=== PATIENT | female | born 1980 | race Caucasian/White ===

== ENCOUNTER → 2016-08-06 | Emergency (ER) | payer BC, OTHER ==
[~2016-08-06] MED LIST: KETOROLAC TROMETHAMINE 30 MG/1 ML VIAL IVPUSH ONE; KETOROLAC TROMETHAMINE 30 MG/1 ML VIAL ONE; LIDOCAINE 5% TOPICAL PATCH TP ONE; OXYCODONE/APAP 5/325MG COMBO TABLET ONE; OXYCODONE/APAP 5/325MG COMBO TABLET PO ONE; diazePAM 5 MG TABLET ONE; diazePAM 5 MG TABLET PO ONE; morphine CARPU-JECT 4 MG/1 ML DISP.SYRIN IVPUSH ONE; morphine CARPU-JECT 4 MG/1 ML DISP.SYRIN ONE
[2016-08-06 22:25] VITALS: TEMP 98.2; BMI 29.0
--- NOTE | 2016-08-06 23:07 | PDOC ---
History of Present Illness <Joanne Sparks - Last Filed: 08/07/16 05:36> - General History Source: Patient Exam Limitations: No Limitations - History of Present Illness Initial Comments: 08/06/16 23:00 Patient is a 35 year old female with h/o depression, kidney stone, RA, fibromyalgia, lap band, cholecystectomy, breast reduction, urostents for kidney stone, c/o lower back pain x 4 days. Patient states was tolerating pain but today bend out to pick son up and heard a pop in the back, then had 10/10 pain. The pain is continuous, radiates to the vagina and down the left buttock, and with coughing radiates up the upper back. No bowel or bladder incontinence, but when she tries to have a BM the pain get more intense. PMD: Dr. Posey Ortho: Dr. Green ALL: PCN GENERAL/CONSTITUTIONAL: [No fever or chills. No weakness. No weight change.] HEAD, EYES, EARS, NOSE AND THROAT: [No change in vision. No ear pain or discharge. No sore throat.] CARDIOVASCULAR: [No chest pain or shortness of breath.] RESPIRATORY: [No cough, wheezing, or hemoptysis.] GASTROINTESTINAL: [No nausea, vomiting, diarrhea or constipation. No rectal bleeding.] GENITOURINARY: [No dysuria, frequency, or change in urination.] MUSCULOSKELETAL: [No joint or muscle swelling or pain. No neck , (+) back pain. ] SKIN AND BREASTS: [No rash or easy bruising.] NEUROLOGIC: [No headache, vertigo, loss of consciousness, or loss of sensation.] PSYCHIATRIC: (+) depression or anxiety.] ENDOCRINE: [No increased thirst. No abnormal weight change.] HEMATOLOGIC/LYMPHATIC: [No anemia, easy bleeding, or history of blood clots.] ALLERGIC/IMMUNOLOGIC: [No hives or skin allergy. No latex allergy.] GENERAL: [The patient is awake, alert, and fully oriented, in moderate painful distress.] HEAD: [Normal with no signs of trauma.] EYES: [Pupils equal, round and reactive to light, extraocular movements intact, sclera anicteric, conjunctiva clear.] ENT: [Ears normal, nares patent, oropharynx clear without exudates. Moist mucous membranes.] NECK: [Normal range of motion, supple without lymphadenopathy, JVD, or masses.] LUNGS: [Breath sounds equal, clear to auscultation bilaterally. No wheezes, and no crackles.] HEART: [Regular rate and rhythm, normal S1 and S2 without murmur, rub.] ABDOMEN: [Soft, nontender, normoactive bowel sounds. No guarding, no rebound. No masses.] BACK: (+) tenderness to the paraspinal muscle, tenderness to the left buttock EXTREMITIES: [Normal range of motion, no edema. No clubbing or cyanosis. No cords, erythema, or tenderness.] NEUROLOGICAL: [Cranial nerves II through XII grossly intact. Normal speech, anthalgic gait, straight leg raise to 20 degrees] PSYCH: [Normal mood, normal affect.] SKIN: [Warm, Dry, normal turgor, no rashes or lesions noted.] <Geoff Dominguez - Last Filed: 08/07/16 06:21> - General Chief Complaint: Back Pain Stated Complaint: BACK PAIN Past History <Joanne Sparks - Last Filed: 08/07/16 05:36> - Past Medical History Anemia: No Asthma: No Cancer: No Cardiac Disorders: No CVA: No COPD: Yes (H/O BRONCHITIS) CHF: No Dementia: No Diabetes: No GI Disorders: Yes (GERD,PYLORIC GASTRITIS) Disorders: No HTN: No Hypercholesterolemia: No Liver Disease: No Psychiatric Problems: Yes (DEPRESSION) Seizures: No Thyroid Disease: No - Surgical History Abdominal Surgery: Yes (LAPAROSCOPIC BARIATRIC BANDING) Cardiac Surgery: No Cholecystectomy: Yes Lung Surgery: No Neurologic Surgery: No Orthopedic Surgery: No - Immunization History Immunization Up to Date: Yes (>5 <10) - Psycho/Social/Smoking Cessation Hx Anxiety: No Suicidal Ideation: No Smoking History: Current some day smoker Have you smoked in the past 12 months: Yes Number of Cigarettes Smoked Daily: 5 Information on smoking cessation initiated: No 'Breaking Loose' booklet given: 05/26/14 Hx Alcohol Use: No Drug/Substance Use Hx: No Substance Use Type: None Hx Substance Use Treatment: No <Geoff Dominguez - Last Filed: 08/07/16 06:21> - Past Medical History Allergies/Adverse Reactions: Allergies Allergy/AdvReac Type Severity Reaction Status Date / Time Penicillins Allergy Mild Rash Verified 08/06/16 22:22 Home Medications: Ambulatory Orders Duloxetine HCl [Cymbalta -] 60 mg PO DAILY 05/26/14 Lorazepam [Ativan] 1 mg PO HS PRN 05/26/14 Ranitidine HCl [Zantac] 300 mg PO DAILY 05/20/15 Ibuprofen 600 mg PO QID PRN #20 tablet 01/23/16 Bupropion HCl [Wellbutrin -] 150 mg PO DAILY 08/07/16 Diazepam [Valium] 5 mg PO Q6H #10 tablet MDD 4I need M 08/07/16 Oxycodone HCl/Acetaminophen [Percocet 5/325 -] 1 tab PO Q4H #20 tablet MDD 6 *Physical Exam - Vital Signs Last Vital Signs Temp Pulse Resp BP Pulse Ox 98.2 F 84 18 106/88 100 08/06/16 22:22 08/06/16 22:22 08/06/16 22:22 08/06/16 22:22 08/06/16 22:22 <Joanne Sparks - Last Filed: 08/07/16 05:36> - Vital Signs Last Vital Signs Temp Pulse Resp BP Pulse Ox 98.2 F 84 18 106/88 100 08/06/16 22:22 08/06/16 22:22 08/06/16 22:22 08/06/16 22:22 08/06/16 22:22 <Geoff Dominguez - Last Filed: 08/07/16 06:21> ED Treatment Course - ADDITIONAL ORDERS Additional order review: Laboratory Results 08/06/16 08/06/16 23:25 23:25 Urine Color Yellow Urine Appearance Slcloudy Urine pH 7.0 Ur Specific [place] 1.025 Urine Protein Negative Urine Glucose (UA) Negative Urine Ketones Trace H Urine Blood 1+ H Urine Nitrite Negative Urine Bilirubin Negative Urine Urobilinogen 2.0 e.u/dl H Ur Leukocyte Esterase Negative Urine RBC 6 Urine WBC 3 Ur Epithelial Cells Few Urine Bacteria Few Urine Mucus Rare Urine HCG, Qual Negative - RADIOLOGY Radiology Studies Ordered: 08/07/16 05:36 THIS IS A PRELIMINARY REPORT FROM [facility] EXAM: CT lumbar spine without contrast FINDINGS: No fracture or subluxation. There is a small herniated disc osteophyte complex at the T12/L1 level which mildly narrows the central canal. The L1 to, L2-3 and L3-4 levels are normal. L4-5 disc demonstrates a small to moderate-sized left central and left lower disc herniation which mildly narrow the left lateral recess and moderately narrows the left neural foramen. L5/S1 disc and small central protrusion or herniation without significant mass effect. IMPRESSION: Small central herniated disc aspect at the T12/L1 level which mildly narrows the central canal. Small to moderate-sized L4-5 left central/ left lateral disc herniation which mildly narrows the left lateral recess and moderately narrows the left neural foramen. Small central L5/S1 disc herniation without significant mass effect. THIS DOCUMENT HAS BEEN ELECTRONICALLY SIGNED Justin Javier MD - Medications Given in the ED: ED Medications Discontinued Medications Generic Name Dose Route Start Last Admin Trade Name Freq PRN Reason Stop Dose Admin Diazepam 5 mg 08/06/16 22:58 08/06/16 23:05 Valium - PO 08/06/16 22:59 5 mg ONCE ONE Administration Ketorolac Tromethamine 30 mg 08/06/16 22:58 08/06/16 23:12 Toradol Injection - IVPUSH 08/06/16 22:59 30 mg ONCE ONE Administration Morphine Sulfate 4 mg 08/07/16 00:19 08/07/16 00:27 Morphine Injection - IVPUSH 08/07/16 00:20 4 mg ONCE ONE Administration Morphine Sulfate 4 mg 08/07/16 03:39 08/07/16 04:13 Morphine Injection - IVPUSH 08/07/16 03:40 4 mg ONCE ONE Administration Oxycodone/Acetaminophen 1 combo 08/07/16 01:24 08/07/16 01:30 Percocet 5/325 - PO 08/07/16 01:25 1 combo ONCE ONE Administration <Joanne Sparks - Last Filed: 08/07/16 05:36> Medical Decision Making - Medical Decision Making 08/06/16 23:07 Patient is a 35 year old female with h/o depression, kidney stone, RA, fibromyalgia, lap band, cholecystectomy, breast reduction, urostents for kidney stone, c/o lower back pain x 4 days with radiates down the right leg consistent with lumbar radiculopathy. valium 5mg po and toradol 30mg IV 08/07/16 01:04 still c/o pain given Morphine 4mg IV states pain is 7/10, will given percocet 1 tab po 08/07/16 03:40 Still in pain now worsening will given Morphine 4mg IV and send for CT lumbar spine 08/07/16 06:11 ct scan reviewed with the patient still has pain but will give percocet 1 tab and Lidoderm patch. I discussed the physical exam findings, ancillary test results and final diagnoses with the patient. I answered all of the patient's questions. The patient was satisfied with the care received and felt comfortable with the discharge plan and treatment plan. The Patient agrees to follow up with the primary care physician within 24-72 hours. <Geoff Dominguez - Last Filed: 08/07/16 06:21> *DC/Admit/Observation/Transfer <Joanne Sparks - Last Filed: 08/07/16 05:36> <Geoff Dominguez - Last Filed: 08/07/16 06:21> Diagnosis at time of Disposition: Lumbar radicular pain - Discharge Dispostion Disposition: HOME Condition at time of disposition: Stable - Prescriptions Prescriptions: Oxycodone HCl/Acetaminophen [Percocet 5/325 -] 1 tab PO Q4H #20 tablet MDD 6 Diazepam [Valium] 5 mg PO Q6H #10 tablet MDD 4I need M - Referrals Referrals: Pollo Posey MD [Primary Care Provider] - - Patient Instructions Additional Instructions: Your Discharge Instructions: You must call primary care physician within 24 hours to arrange follow-up. Return to the Emergency Department with any new, persistent or worsening symptoms, for fever, chills, SOB, dizziness or any other concerning changes that may occur. you need to follow with spine
[2016-08-06 23:36] LABS: URINE APPEARANCE SLCLOUDY; URINE BILIRUBIN NEGATIVE (NEGATIVE); URINE COLOR YELLOW; URINE GLUCOSE (UA) NEGATIVE (NEGATIVE); URINE KETONE TRACE (NEGATIVE); URINE LEUK ESTERASE NEGATIVE (NEGATIVE); URINE NITRITE NEGATIVE (NEGATIVE); URINE PROTEIN NEGATIVE (NEGATIVE); URINE UROBILINOGEN 2.0 E.U/dl E.U./dl (0.2-1.0)
[2016-08-06 23:38] LABS: URINE BLOOD 1+ (NEGATIVE)
[2016-08-06 23:42] LABS: URINE BACTERIA FEW /hpf (NONE SEEN); URINE MUCUS RARE; URINE RBC 6 /hpf (0-3); URINE WBC 3 /hpf (3-5)
[2016-08-07 06:35] VITALS: BP 104/60; PULSE 67
== END | disposition home or self-care (01) ==
LOC: JER 22:14
PROC: 3E0333Z Introduction of Anti-inflammatory into Peripheral Vein, Percutaneous Approach (ICD-10-PCS; principal; 2016-08-06)
PROC: 3E033NZ Introduction of Analgesics, Hypnotics, Sedatives into Peripheral Vein, Percutaneous Approach (ICD-10-PCS; 2016-08-06)
DX: M54.16 Radiculopathy, lumbar region (principal)
CPT/HCPCS: 72131-TC; 81003; 81015; 84703; 99282-25

== ENCOUNTER 2016-09-25 09:37 | Emergency (ER) | payer BC, OTHER ==
[2016-09-25 09:46] VITALS: BMI 29.0
--- NOTE | 2016-09-25 10:59 | PDOC ---
History of Present Illness - General Chief Complaint: Pain, Acute Stated Complaint: CHEST AND BACK PAIN Time Seen by Provider: 09/25/16 09:52 History Source: Patient Exam Limitations: No Limitations - History of Present Illness Initial Comments: 09/25/16 10:51 This patient is a 35-year-old female presenting to the ER with a complaint of cough Pt states she has had a cough for 2 weeks She was seen at an urgent care when her symptoms first began She was diagnosed with allergies and started on Flonase and albuterol Pt states that she has persistently had a cough Last night, she had such a severe coughing spell that she threw out her back When she laid down 20 minutes later, she noted that she had left chest pain PMH: PSH: Lap band, Breast reduction, cholecystectomy, polypectomy, 2, stents in kidneys Please see MAR ALL: Penicillin Social: denies alcohol, drug, cigarette use GENERAL/CONSTITUTIONAL: No: fever, chills, weakness, loss of appetite. HEAD, EYES, EARS, NOSE AND THROAT: No: change in vision, ear pain, discharge, sore throat, throat swelling. CARDIOVASCULAR: Yes: chest wall pain No: lightheadedness, palpitations, syncope RESPIRATORY: Yes: cough, shortness of breath No: wheezing, hemoptysis, stridor. GASTROINTESTINAL: No: nausea, vomiting, diarrhea, abdominal cramping, rectal bleeding, constipation. GENITOURINARY: No: dysuria, hematuria, frequency, urgency, flank pain. MUSCULOSKELETAL: No: back pain, neck pain, joint pain, muscle swelling or pain SKIN AND BREASTS: No: lesions, pallor, rash or easy bruising. NEUROLOGIC: No: headache, vertigo, paresthesias, weakness ENDOCRINE: No: unexplained weight gain or loss HEMATOLOGIC/LYMPHATIC: No: anemia, easy bleeding, swelling nodes. GENERAL: The patient is in no acute distress. HEAD: Normal with no signs of trauma. EYES: PERRLA, EOMI, sclera anicteric, conjunctiva clear. ENT: Ears normal, nares patent, oropharynx clear without exudates. Moist mucous membranes. NECK: Normal range of motion, supple without lymphadenopathy, JVD, or masses. LUNGS: Breath sounds equal, clear to auscultation bilaterally. No wheezes, and no crackles. HEART:Regular rate and rhythm, normal S1 and S2 without murmur, rub or gallop. ABDOMEN: Soft, nontender, normoactive bowel sounds. No guarding, no rebound. No masses palpable. EXTREMITIES: Normal range of motion, no edema. No clubbing or cyanosis. No erythema, or tenderness. NEUROLOGICAL: Cranial nerves II through XII grossly intact. Normal speech. No focal neurological deficits. MUSCULOSKELETAL: Back non-tender to palpation, no CVA tenderness SKIN: Warm, Dry, normal turgor, no rashes or lesions noted. Past History - Past Medical History Allergies/Adverse Reactions: Allergies Allergy/AdvReac Type Severity Reaction Status Date / Time Penicillins Allergy Mild Rash Verified 09/25/16 09:39 Home Medications: Ambulatory Orders Duloxetine HCl [Cymbalta -] 60 mg PO DAILY 05/26/14 Lorazepam [Ativan] 1 mg PO HS PRN 05/26/14 Ranitidine HCl [Zantac] 300 mg PO DAILY 05/20/15 Bupropion HCl [Wellbutrin -] 150 mg PO DAILY 08/07/16 Albuterol Sulfate Inhaler - [Ventolin Hfa Inhaler -] 1 - 2 inh PO PRN PRN Fluticasone Prop 0.05% Nasal [Flonase -] 1 - 2 spray NS DAILY 09/25/16 Levofloxacin [Levaquin] 750 mg PO DAILY #7 tab 09/25/16 Anemia: No Asthma: Yes (BRONCHITIS) Cancer: No Cardiac Disorders: No CVA: No COPD: Yes (H/O BRONCHITIS) CHF: No Dementia: No Diabetes: No GI Disorders: Yes (GERD,PYLORIC GASTRITIS) Disorders: No HTN: No Hypercholesterolemia: No Liver Disease: No Psychiatric Problems: Yes (DEPRESSION) Seizures: No Thyroid Disease: No - Surgical History Abdominal Surgery: Yes (LAPAROSCOPIC BARIATRIC BANDING) Cardiac Surgery: No Cholecystectomy: Yes Lung Surgery: No Neurologic Surgery: No Orthopedic Surgery: No - Immunization History Immunization Up to Date: Yes (>5 <10) - Psycho/Social/Smoking Cessation Hx Anxiety: No Suicidal Ideation: No Smoking History: Current every day smoker Have you smoked in the past 12 months: Yes Number of Cigarettes Smoked Daily: 4 Information on smoking cessation initiated: No 'Breaking Loose' booklet given: 05/26/14 Hx Alcohol Use: Yes (SOCIALLY) Drug/Substance Use Hx: No Substance Use Type: None Hx Substance Use Treatment: No *Physical Exam - Vital Signs Last Vital Signs Temp Pulse Resp BP Pulse Ox 98.4 F 80 18 118/77 99 09/25/16 09:38 09/25/16 09:38 09/25/16 09:38 09/25/16 09:38 09/25/16 09:38 Heart Score/ECG Review #1 ECG reviewed & interpreted by me at: 11:06 09/25/16 11:06 Twelve-lead EKG was performed and reviewed by me. Junctional rhythm rate of 67 bpm. [place] nml Intervals nml No ST elevations ED Treatment Course - LABORATORY CBC & Chemistry Diagram: 09/25/16 11:10 09/25/16 11:10 - ADDITIONAL ORDERS Additional order review: Laboratory Results 09/25/16 10:00 Urine HCG, Qual Negative - RADIOLOGY Radiology Studies Ordered: Category Date Time Status CHEST PA & LAT [RAD] Stat Radiology 09/25/16 10:01 Completed Medical Decision Making - Medical Decision Making 09/25/16 10:59 Will do chest x-ray. Will give Toradol for pain. 09/25/16 10:59 Chest x-ray read as airspace opacity seen in the left lower lung zone lateral to the left heart border. Will treat as pneumonia. Last patient follow up with her primary care physician within 2 or 3 days. Last patient to monitor for fevers or chills. 09/25/16 11:05 I had a long conversation with this patient regarding her symptoms. This is likely an early pneumonia. Patient is concerned about a clot in her lungs. We've had a long conversation about her limited risk factors, and her stable vital signs. She is still worried and is requesting that we rule out a clot. 09/25/16 16:59 09/25/16 17:00 Laboratory Tests 09/25/16 09/25/16 09/25/16 10:00 11:10 11:10 WBC 8.9 Hgb 11.8 Hct 34.2 Plt Count 206 D-Dimer 244 H BUN Creatinine Urine HCG, Qual Negative 09/25/16 11:10 WBC Hgb Hct Plt Count D-Dimer BUN 8 Creatinine 0.7 Urine HCG, Qual CTA chest: No evidence of pulmonary embolism. Patchy opacities at the right and left lung with atelectatic changes in the right middle lobe medially and consolidation and atelectasis in lingular second segment of the left upper lobe consistent with pneumonia Patient given copies of her CT. I reviewed all findings of the CT with this patient. Patient asked to follow-up with her primary care physician. Patient asked to take meds antibiotics as we discussed Pt asked to follow up with Dr Walters given her CT shows esophageal dilation and she likely needs an adjustment of her band Pt asked to follow up with Ortho re: CT findings of her spine *DC/Admit/Observation/Transfer Diagnosis at time of Disposition: Pneumonia Qualifiers: Pneumonia type: due to unspecified organism Laterality: bilateral Lung location : unspecified part of lung Qualified Code(s): J18.9 - Pneumonia, unspecified organism - Discharge Dispostion Disposition: HOME Condition at time of disposition: Stable Admit: No - Prescriptions Prescriptions: Levofloxacin [Levaquin] 750 mg PO DAILY #7 tab - Patient Instructions Printed Discharge Instructions: DI for Pneumonia -- Adult Additional Instructions: Thank you for coming to the ER Please review your CT results You must follow up with your primary care physician Please take antibiotics as prescribed Monitor yourself for fevers and chills Return to the ER for worsening symptoms, fevers, chills, cough, shortness of breath, no improvement on the antibiotics - Post Discharge Activity Work/School Note: Back to Work
[2016-09-25] MEDS ORDERED: KETOROLAC TROMETHAMINE 30 MG/1 ML VIAL IVPUSH ONE (11:05)
[2016-09-25] MEDS ORDERED: KETOROLAC TROMETHAMINE 30 MG/1 ML VIAL ONE (11:10)
[2016-09-25 11:35] LABS: MCH 28.6 pg (25.7-33.7); MCHC 34.5 g/dl (32.0-36.0); MEAN CELL VOLUME 82.7 fl (80-96); MEAN PLT VOLUME 9.8 fl (7.5-11.1); NEUTROPHILS 76.9 % (42.8-82.8); PLATELET COUNT 206 K/MM3 (134-434); RDW 14.1 % (11.6-15.6); WHITE BLOOD COUNT 8.9 K/mm3 (4.0-10.8)
[2016-09-25 11:40] LABS: BASOPHIL 0.6 % (0-2.0)
[2016-09-25 11:44] LABS: COCKROFT - GAULT 145.7665; CREATININE 0.7 mg/dl (0.6-1.3)
[2016-09-25 15:01] VITALS: TEMP 98.2
[2016-09-25 16:37] VITALS: BP 102/64; PULSE 62
--- NOTE | 2016-09-26 11:55 | EKG ---
Test Reason : Blood Pressure : / mmHG Vent. Rate : 067 BPM Atrial Rate : 067 BPM P-R Int : 120 ms QRS Dur : 090 ms QT Int : 414 ms P-R-T Axes : -01 020 031 degrees QTc Int : 437 ms NORMAL SINUS RHYTHM JUNCTIONAL ST DEPRESSION, PROBABLY NORMAL BORDERLINE ECG WHEN COMPARED WITH ECG OF 19-JUN-2005 10:44, NO SIGNIFICANT CHANGE WAS FOUND Confirmed by DESIRE HUNTLEY, GEORGNIA ([id number]) on 09/26/2016 11:54:58 AM Referred By: FLACO Confirmed By:GEORGINA PHIPPS MD
== END 2016-09-25 17:24 | disposition home or self-care (01) ==
LOC: FER 09:37
PROC: 3E0333Z Introduction of Anti-inflammatory into Peripheral Vein, Percutaneous Approach (ICD-10-PCS; principal; 2016-09-25)
DX: J18.9 Pneumonia, unspecified organism (principal); F32.9 Major depressive disorder, single episode, unspecified; F17.210 Nicotine dependence, cigarettes, uncomplicated
CPT/HCPCS: 36415; 71020-TC; 71275-TC; 80048; 84703; 85025; 85379; 87040; 93005; 99284-25

== ENCOUNTER 2016-11-06 13:35 | Emergency (ER) | payer BC, OTHER ==
[2016-11-06 13:52] VITALS: BP 115/77; PULSE 78; TEMP 97.9; BMI 28.1
--- NOTE | 2016-11-06 14:16 | PDOC ---
History of Present Illness - General Chief Complaint: Respiratory Stated Complaint: PERSISTENT COUGH Time Seen by Provider: 11/06/16 13:41 History Source: Patient Exam Limitations: No Limitations - History of Present Illness Initial Comments: 11/06/16 14:11 Patient is 35F with a history of lap band surgery and PNA (dx 09/30) here today complaining of cough. The symptoms started in August, but worsened the past two days. She was worked up in the ED, where a CXR and CTA showed an infiltrate. She was prescribed levofloxacin for 7 days, but frequently coughed up the pill an hour or two after taking it because of her lap band surgery. She endorses shortness of breath, dizziness, and pleuritic chest pain in the upper left part of her chest radiating to her shoulder. She says she smokes 3-4 cigarettes per day. She denies nausea, vomiting, fevers chills. She took albuterol without improvement. Past History - Past Medical History Allergies/Adverse Reactions: Allergies Allergy/AdvReac Type Severity Reaction Status Date / Time Penicillins Allergy Mild Rash Verified 09/25/16 09:39 Home Medications: Ambulatory Orders Duloxetine HCl [Cymbalta -] 60 mg PO DAILY 05/26/14 Lorazepam [Ativan] 1 mg PO HS PRN 05/26/14 Ranitidine HCl [Zantac] 300 mg PO DAILY 05/20/15 Bupropion HCl [Wellbutrin -] 150 mg PO DAILY 08/07/16 Albuterol Sulfate Inhaler - [Ventolin Hfa Inhaler -] 1 - 2 inh PO PRN PRN Fluticasone Prop 0.05% Nasal [Flonase -] 1 - 2 spray NS DAILY 09/25/16 Amox-Tr/K Cl [Augmentin 250 mg/5 ml Oral Suspension -] 500 mg PO TID #21 dose Anemia: No Asthma: Yes (BRONCHITIS) Cancer: No Cardiac Disorders: No CVA: No COPD: Yes (H/O BRONCHITIS) CHF: No Dementia: No Diabetes: No GI Disorders: Yes (GERD,PYLORIC GASTRITIS) Disorders: No HTN: No Hypercholesterolemia: No Liver Disease: No Psychiatric Problems: Yes (DEPRESSION) Seizures: No Thyroid Disease: No - Surgical History Abdominal Surgery: Yes (LAPAROSCOPIC BARIATRIC BANDING) Cardiac Surgery: No Cholecystectomy: Yes Lung Surgery: No Neurologic Surgery: No Orthopedic Surgery: No - Immunization History Immunization Up to Date: Yes (>5 <10) - Psycho/Social/Smoking Cessation Hx Anxiety: Yes Suicidal Ideation: No Smoking History: Current every day smoker Have you smoked in the past 12 months: Yes Number of Cigarettes Smoked Daily: 4 Information on smoking cessation initiated: Yes 'Breaking Loose' booklet given: 05/26/14 Hx Alcohol Use: No Drug/Substance Use Hx: No Substance Use Type: None Hx Substance Use Treatment: No Review of Systems - Review of Systems Constitutional: No: Chills, Diaphoresis, Fever HEENTM: No: Blurred Vision, Recent change in vision Respiratory: Yes: Cough, Shortness of Breath Cardiac (ROS): Yes: Chest Pain, Lightheadedness ABD/GI: Yes: Constipated (At baseline), Diarrhea. No: Nausea, Vomiting : No: Burning, Dysuria Neurological: Yes: Dizziness. No: Headache *Physical Exam - Vital Signs Last Vital Signs Temp Pulse Resp BP Pulse Ox 97.9 F 78 16 115/77 100 11/06/16 13:41 11/06/16 13:41 11/06/16 13:41 11/06/16 13:41 11/06/16 13:41 - Physical Exam Comments: 11/06/16 14:16 Gen: Coughing regularly, no acute distress, well nourished Neuro: Alert, oriented, no focal neuro deficits CV: Regular rate and rhythm, no murmurs rubs or gallops Lungs: Clear to auscultation bilaterally, coughing, normal work of breathing Abd: Soft, nontender, normal bowel sounds Ext: 2+ pulses bilaterally in lower extremities ED Treatment Course - LABORATORY CBC & Chemistry Diagram: 11/06/16 14:10 11/06/16 14:10 - RADIOLOGY Radiology Studies Ordered: Category Date Time Status CHEST PA & LAT [RAD] Stat Radiology 11/06/16 14:07 Ordered Medical Decision Making - Medical Decision Making 11/06/16 15:34 Patient is a 35F with a history of PNA (dx 09/30) and Lap Band surgery (~10 years ago) here today complaining of a chronic cough. Patient did not complete her antibiotic regimen. Vital signs stable and normal. Differential diagnosis includes, but is not limited to: PNA, empyema, bronchitis, and asthma exacerbation. Will order CXR, CMP, CBC, and UA to evaluate. Neelima Noel, [employer]POR[employer] TRA[employer] of Dr Walters, patient's lap band surgeon, called to discuss patients problem swallowing pills. She will contact Dr Walters to discuss loosening lap band. 11/06/16 17:55 Neelima Nole took of 1.6 mL from band. CXR shows evidence of chronic inflammation of the right lower lung diaz. Suggestive of chronic aspiration. Labs normal. Will treat with augmentin for 14 days and follow up with Dr Walters. Patient has distant history of penicillin reaction, but has taken augmentin before without issues. Counseled to come back if any symptoms of a reaction occur. *DC/Admit/Observation/Transfer Diagnosis at time of Disposition: Aspiration into lower respiratory tract Qualifiers: Encounter type: initial encounter Qualified Code(s): T17.800A - Unspecified foreign body in other parts of respiratory tract causing asphyxiation, initial encounter - Discharge Dispostion Condition at time of disposition: Good Admit: No - Prescriptions Prescriptions: Amox-Tr/K Cl [Augmentin 250 mg/5 ml Oral Suspension -] 500 mg PO TID #21 dose - Referrals Referrals: Pollo Posey MD [Primary Care Provider] - Jefe Walters MD [Staff Physician] - - Patient Instructions Printed Discharge Instructions: DI for Aspiration Pneumonia Additional Instructions: Mrs Toussaint, I'm sorry that you've had some troubles with shortness of breath and your lap band. I hope you feel better soon. Sincerely, Dr. Martines - Attestations Physician Attestion: 11/06/16 18:01 I, Dr. Anant Martines, attest that this document has been prepared under my direction and personally reviewed by me in its entirety. I further attest, that it accurately reflects all work, treatment, procedures and medical decision -making performed by me.
--- NOTE | 2016-11-06 14:17 | PDOC ---
Attending Attestation - Resident Resident Name: Anant Martines - ED Attending Attestation I have performed the following: I have examined & evaluated the patient, The case was reviewed & discussed with the resident, I agree w/resident's findings & plan, Exceptions are as noted - HPI HPI: 11/06/16 14:14 Cx with pneumonia about a month ago, did not take full course of antibiotic ( levaquin). Has persistient cough now with some left sided chest pain with the cough. Cough is dry and non-productive. Patient continues to smoke cigarettes. - Physicial Exam PE: 11/06/16 14:15 NAD, Non Tender chest, Clear, Breath Sounds Normal, Afebrile and Normotensive - Medical Decision Making 11/06/16 14:16 Will work patient up for pneumonia - due to partial treatment with antibiotics. Pt was seen by Pulmonology after initial dx, called again today because of persistent cough and was referred to ED for eval. Will act on diagnostic testing.
[2016-11-06] MEDS ORDERED: ALBUTEROL SO4 0.083% IH SOL 2.5 MG/3 ML VIAL.NEB. NEB ONE ×2 (14:20→14:25)
[2016-11-06 14:39] LABS: BASOPHIL 1.9 % (0-2.0); EOSINOPHIL 5.1 % (0-4.5); MCHC 33.1 g/dl (32.0-36.0); MEAN CELL VOLUME 84.6 fl (80-96); MEAN PLT VOLUME 10.5 fl (7.5-11.1); NEUTROPHILS 61.5 % (42.8-82.8); PLATELET COUNT 191 K/MM3 (134-434); RDW 14.8 % (11.6-15.6); WHITE BLOOD COUNT 6.3 K/mm3 (4.0-10.8)
[2016-11-06 14:42] LABS: PH,URINE 5.5 (4.5-8); URINE APPEARANCE Clear; URINE BILIRUBIN Negative (NEGATIVE); URINE BLOOD 2+ (NEGATIVE); URINE COLOR YELLOW; URINE GLUCOSE (UA) Negative (NEGATIVE); URINE KETONE Negative (NEGATIVE); URINE LEUK ESTERASE Negative (NEGATIVE); URINE NITRITE Negative (NEGATIVE); URINE PROTEIN Trace (NEGATIVE); URINE UROBILINOGEN 0.2 (0.2-1.0)
[2016-11-06 15:24] LABS: URINE WBC 0-3 (3-5)
[2016-11-06 15:25] LABS: URINE MUCUS 1+
[2016-11-06 15:27] LABS: ALBUMIN 4.1 g/dl (3.5-5.0); ALK PHOS 37 U/L (32-92); ANION GAP 6 (8-16); BILIRUBIN,TOTAL 0.6 mg/dl (0.2-1.0); CO2 26 mmol/L (22-28); CREATININE 0.7 mg/dl (0.6-1.3); GLUCOSE,RANDOM 91 mg/dl (74-106); SGOT/AST 17 U/L (10-42); SGPT/ALT 14 U/L (10-40); TOT PROT 6.8 g/dl (6.4-8.3)
--- NOTE | 2016-11-07 09:23 | EKG ---
Test Reason : Blood Pressure : / mmHG Vent. Rate : 075 BPM Atrial Rate : 075 BPM P-R Int : 134 ms QRS Dur : 100 ms QT Int : 438 ms P-R-T Axes : 049 030 052 degrees QTc Int : 489 ms POOR DATA QUALITY, INTERPRETATION MAY BE ADVERSELY AFFECTED NORMAL SINUS RHYTHM prolonged QT WHEN COMPARED WITH ECG OF 25-SEP-2016 09:50, QT HAS LENGTHENED Confirmed by MD JEAN-PIERRE, ANSELMO ([id number]) on 11/07/2016 9:23:11 AM Referred By: NIHARIKA Confirmed By:ANSELMO MOREJON MD
== END 2016-11-06 18:23 | disposition home or self-care (01) ==
LOC: FER 13:35
PROC: 3E0F7GC Introduction of Other Therapeutic Substance into Respiratory Tract, Via Natural or Artificial Opening (ICD-10-PCS; principal; 2016-11-06)
DX: T17.800A Unspecified foreign body in other parts of respiratory tract causing asphyxiation, initial encounter (principal); Z98.84 Bariatric surgery status; X58.XXXA Exposure to other specified factors, initial encounter; Y93.89 Activity, other specified; Y92.9 Unspecified place or not applicable; K21.9 Gastro-esophageal reflux disease without esophagitis; F17.210 Nicotine dependence, cigarettes, uncomplicated; J45.909 Unspecified asthma, uncomplicated; F32.9 Major depressive disorder, single episode, unspecified
CPT/HCPCS: 36415; 71020-TC; 80053; 81003; 81015; 84703; 85025; 87040; 93005; 99282-25

== ENCOUNTER 2018-07-19 09:17 | Day surgery (SDC) | payer BC, OTHER ==
[2018-07-18 12:48] VITALS: BMI 29.0
[2018-07-19 12:58] VITALS: TEMP 97.7
[2018-07-19 13:47] VITALS: BP 113/67; PULSE 68
--- NOTE | 2018-07-22 14:27 | PATH ---
Surgical Pathology Report Patient Name: LOW CASTELLANOS [facility]. Rec. #: [id number] /Age/Gender: 1980 (Age: 37) / F Account: [id number] Location: U-ENDOSCOPY Taken: 07/19/2018 Received: 07/19/2018 Reported: 07/22/2018 Physicians: Ronda Ferrell M.D. Specimen(s) Received A: DUODENUM B: ANTRUM C: GE JUNCTION 35 CM. D: GE JUNCTION 33 CM. E: RIGHT COLON Clinical History Personal history of colon polyp, family history of colon cancer Postoperative diagnosis: GERD, atrophic gastritis lap band, colon polyp Final Diagnosis A. SECOND PORTION DUODENUM AND BULB. BIOPSY: DUODENUM MUCOSA WITH NO SIGNIFICANT PATHOLOGIC CHANGE. NO HISTOLOGIC EVIDENCE OF CELIAC DISEASE. B. ANTRUM, BIOPSY: GASTRIC MUCOSA WITH MILD CHRONIC GASTRITIS. IMMUNOSTAIN FOR H. PYLORI IS NEGATIVE. NEGATIVE FOR INTESTINAL METAPLASIA. C. GE JUNCTION 35 CM, BIOPSY: ESOPHAGEAL MUCOSA WITH REFLUX ESOPHAGITIS. NEGATIVE FOR INTESTINAL METAPLASIA. D. GE JUNCTION 33 CM, BIOPSY: ESOPHAGEAL MUCOSA WITH REFLUX ESOPHAGITIS. NEGATIVE FOR INTESTINAL METAPLASIA. E. POLYP FROM RIGHT COLON, BIOPSY: HYPERPLASTIC POLYP. Electronically Signed Hesham Malik M.D. Gross Description A. Received in formalin, labeled "biopsy second portion of duodenum"" are 3 velasquez, irregular portions of soft tissue averaging 0.5 cm. in greatest dimension. The specimens are submitted in toto in one cassette. B. Received in formalin, labeled "biopsy antrum" are 3 velasquez, irregular portions of soft tissue ranging from 0.2-0.5 cm. in greatest dimension. The specimens are submitted in toto in one cassette. C. Received in formalin, labeled "biopsy GE junction 35 cm" are 4 velasquez, irregular portions of soft tissue ranging from 0.2-0.6 cm. in greatest dimension. The specimens are submitted in toto in one cassette. D. Received in formalin, labeled "biopsy GE junction 33 cm" are 4 velasquez, irregular portions of soft tissue ranging from 0.3-0.4 cm. in greatest dimension. The specimens are submitted in toto in one cassette. E. Received in formalin, labeled "polyp right colon" is a velasquez, irregular portion of soft tissue measuring 0.5 cm. in greatest dimension. The specimen is submitted in toto in one cassette. 07/19/2018 saudi07/19/2018
== END 2018-07-19 13:47 | disposition home or self-care (01) ==
LOC: JASU-ENDO 09:17
PROVIDERS: ATTEND Internal Medicine Gastroenterology
PROC: 0DB38ZX Excision of Lower Esophagus, Via Natural or Artificial Opening Endoscopic, Diagnostic (ICD-10-PCS; 2018-07-19)
PROC: 0DB68ZX Excision of Stomach, Via Natural or Artificial Opening Endoscopic, Diagnostic (ICD-10-PCS; 2018-07-19)
PROC: 0DBK8ZX Excision of Ascending Colon, Via Natural or Artificial Opening Endoscopic, Diagnostic (ICD-10-PCS; principal; 2018-07-19 12:30)
DX: Z86.010 Personal history of colon polyps (principal); Z83.71 Family history of colonic polyps; Z80.0 Family history of malignant neoplasm of digestive organs; K63.5 Polyp of colon; Q43.8 Other specified congenital malformations of intestine; K64.8 Other hemorrhoids; K29.50 Unspecified chronic gastritis without bleeding; K21.0 Gastro-esophageal reflux disease with esophagitis; Z98.84 Bariatric surgery status
CPT/HCPCS: 84703; 88305-TC; 88342-TC

== ENCOUNTER 2019-03-09 01:38 | Emergency (ER) | payer BC, OTHER ==
[2019-03-09 01:49] VITALS: BP 137/93; PULSE 100; TEMP 98.3; BMI 28.1
[2019-03-09] MEDS ORDERED: KETOROLAC TROMETHAMINE 60 MG/2 ML VIAL IM ONE (02:04)
[2019-03-09] MEDS ORDERED: KETOROLAC TROMETHAMINE 60 MG/2 ML VIAL ONE (02:06)
--- NOTE | 2019-03-09 02:06 | PDOC ---
History of Present Illness - General Chief Complaint: Injury Stated Complaint: RT CHEST/LEG PAIN Time Seen by Provider: 03/09/19 01:46 History Source: Patient Exam Limitations: No Limitations - History of Present Illness Initial Comments: 03/09/19 02:14 This is a 38-year-old female who comes in complaining of right sided chest and rib pain post fall. Patient said that she has been having pain in her left leg that she has seen an orthopedist for and had an ultrasound for a painful lump in her leg. Patient said that she got up in the middle of the night to 10 to her special needs son and her leg gave out causing her to fall onto her right side. Patient did not hit her head or pass out. Patient fell approximately 48 hours ago and said she has had progressive discomfort in her right chest since she fell. Patient has not taken anything for the pain or discomfort because she says she has a hard time swallowing pills. Allergies: as per nursing notes Past Medical History: none Social history: Lives with family. No smoking. No alcohol. No illicit drugs. Surgical history: None General: No fevers or chills, no weakness, no weight loss HEENT: No change in vision. No sore throat,. No ear pain CardioVascular: + chest discomfort. No shortness of breath Respiratory:No cough, or wheezing. Gastrointestinal: no nausea, vomiting, diarrhea or constipation, No rectal bleeding Genitourinary: No dysuria, hematuria, or frequency Musculoskeletal: + joint or muscle pain or swelling Neurologic: No headache, vertigo, dizziness or loss of consciousness Psychiatric: nor depression Skin: No rashes or easy bruising Endocrine: no increased thirst or abnormal weight change Allergic: no skin or latex allergy All other systems reviewed and normal Exam: General: Well-nourished well-developed individual, no acute distress HEENT: Throat: Normal, tonsils normal, no erythema or exudate Neck: Supple, no meningeal signs, no lymphadenopathy Eyes::Pupils equal reactive and round, extraocular motion intact Chest: Nontender to palpation Cardiac: S1-S2 normal, regular rate and rhythm, no murmurs rubs or gallops Respiratory: Lungs clear to auscultation bilateral, there is tenderness on palpation of the anterior and lateral muscles of the chest wall. There is no crepitus. There is some ecchymosis of the lateral right arm but no bony tenderness. Abdomen: Soft, nondistended, normal bowel sounds, there is no tenderness on palpation diffusely Extremities: Warm, dry, no cyanosis, clubbing, or edema Left lower extremity there is a palpable lump in the leg laterally. There is no bony tenderness. Skin: No rashes Neuro: Alert and oriented x3, CN II - XII intact, nonfocal exam with normal strength, normal sensation, normal reflexes, normal gait, Psych: Normal mood and affect Assessment and plan: This is a 38-year-old female who is 48 hours status post fall with discomfort of her anterior lateral chest wall muscles. Patient had x -ray of chest and ribs that was negative for any acute Some left leg discomfort and a palpable lump on her left leg that is being worked up and evaluated by an orthopedist and she recently had an ultrasound for it. Lump has been there for several weeks now. Patient was given Toradol for the pain reassured and told to continue with some liquid ibuprofen for the next 48 hours and follow-up with the orthopedist on Sunday. Past History - Past Medical History Allergies/Adverse Reactions: Allergies Allergy/AdvReac Type Severity Reaction Status Date / Time Penicillins Allergy Mild Rash Verified 09/25/16 09:39 Home Medications: Ambulatory Orders Duloxetine HCl [Cymbalta -] 60 mg PO DAILY 05/26/14 Lorazepam [Ativan] 1 mg PO HS PRN 05/26/14 Ranitidine HCl [Zantac] 300 mg PO DAILY 05/20/15 Bupropion HCl [Wellbutrin -] 150 mg PO DAILY 08/07/16 Albuterol Sulfate Inhaler - [Ventolin HFA Inhaler -] 1 - 2 inh PO PRN PRN Fluticasone Prop 0.05% Nasal [Flonase -] 1 - 2 spray NS DAILY 09/25/16 Cyanocobalamin Vit B-12 Inj. [Vitamin B12 Injection -] 1,000 mcg IJ MONTHLY Fluticasone Propionate [Flovent Diskus] 250 mcg IH DAILY 07/18/18 Montelukast Sodium [Singulair] 10 mg PO DAILY 07/18/18 Magnesium Carb/Aluminum Hydrox [Gaviscon Es Tablet Chew] 1 each PO Q4H PRN #120 tab.chew 07/19/18 Pantoprazole Sodium 40 mg PO HS #30 tablet. 07/19/18 Anemia: No Asthma: Yes (BRONCHITIS) Cancer: No Cardiac Disorders: No CVA: No COPD: Yes (H/O BRONCHITIS,PNEUMONIA) CHF: No Dementia: No Diabetes: No GI Disorders: Yes (GERD, PYLORIC GASTRITIS, COLON ADENOMAS) Disorders: No HTN: No Hypercholesterolemia: No Liver Disease: No Psychiatric Problems: Yes (DEPRESSION) Seizures: No Thyroid Disease: No - Surgical History Abdominal Surgery: Yes (LAPAROSCOPIC BARIATRIC BANDING) Appendectomy: No Cardiac Surgery: No Cholecystectomy: Yes Lung Surgery: No Neurologic Surgery: No Orthopedic Surgery: No - Immunization History Immunization Up to Date: Yes (>5 <10) - Psycho Social/Smoking Cessation Hx Smoking History: Never smoked Have you smoked in the past 12 months: No Number of Cigarettes Smoked Daily: 4 If you are a former smoker, when did you quit?: 2017 Information on smoking cessation initiated: Yes 'Breaking Loose' booklet given: 05/26/14 Hx Alcohol Use: Yes (SOCIALLY) Drug/Substance Use Hx: No Substance Use Type: None Hx Substance Use Treatment: No *Physical Exam - Vital Signs Last Vital Signs Temp Pulse Resp BP Pulse Ox 98.3 F 100 H 16 137/93 100 03/09/19 01:45 03/09/19 01:45 03/09/19 01:45 03/09/19 01:45 03/09/19 01:45 Discharge - Discharge Information Problems reviewed: Yes Clinical Impression/Diagnosis: Chest pain, muscular, Left leg pain Condition: Stable Disposition: HOME - Admission No - Follow up/Referral Referrals: Pollo Posey MD [Primary Care Provider] - - Patient Discharge Instructions Additional Instructions: For the pain take ibuprofen 600 mg that would be 6 teaspoons 3 times a day with food do not take on an empty stomach. Take the ibuprofen for at least another 48 hours Follow-up with an orthopedist regarding your leg pain. Return to the emergency department immediately with ANY new, persistent or worsening symptoms. Continue any medications as previously prescribed by your physician. You should follow up with your primary doctor as soon as possible regarding today's emergency department visit. . Please make sure your doctor reviews the results of your emergency evaluation. Thank you for coming to the Emergency Department today for your care. It was a pleasure to see you today. Please note that your evaluation is INCOMPLETE until you follow-up with your doctor. - Post Discharge Activity
== END 2019-03-09 02:39 | disposition home or self-care (01) ==
LOC: FER 01:38
PROC: 3E0233Z Introduction of Anti-inflammatory into Muscle, Percutaneous Approach (ICD-10-PCS; principal; 2019-03-09)
DX: M79.605 Pain in left leg (principal); R07.89 Other chest pain; W18.39XA Other fall on same level, initial encounter; Y93.89 Activity, other specified; Y92.009 Unspecified place in unspecified non-institutional (private) residence as the place of occurrence of the external cause; Z88.0 Allergy status to penicillin; Z87.891 Personal history of nicotine dependence; F32.9 Major depressive disorder, single episode, unspecified; K21.9 Gastro-esophageal reflux disease without esophagitis; Z98.84 Bariatric surgery status; J40 Bronchitis, not specified as acute or chronic
CPT/HCPCS: 71046-TC-FY; 71101-TC-RT-FY; 99281-25

== ENCOUNTER 2020-09-12 23:13 | Emergency (ER) | payer BC, OTHER ==
[2020-09-12 23:21] VITALS: BP 121/88; PULSE 88; TEMP 98.7; BMI 30.8
[2020-09-13] MEDS ORDERED: LIDOCAINE 5% TOPICAL PATCH TP ONE (00:39)
[2020-09-13] MEDS ORDERED: LIDOCAINE 5% TOPICAL PATCH ONE (00:45)
[2020-09-13] MEDS ORDERED: LIDOCAINE PATCH REMOVAL MC ONE (12:00)
== END 2020-09-13 01:59 | disposition home or self-care (01) ==
LOC: JER 23:13
DX: S30.0XXA Contusion of lower back and pelvis, initial encounter (principal); M54.5 Low back pain
CPT/HCPCS: 99283-25

== ENCOUNTER 2021-10-14 09:22 | Emergency (ER) | payer BC, OTHER ==
[2021-10-14] MEDS ORDERED: SODIUM CHLORIDE 1,000 ML IV STA (09:41)
[2021-10-14] MEDS ORDERED: ACETAMINOPHEN 1000 MG/100 ML BAG IVPB ONE (09:41)
[2021-10-14] MEDS ORDERED: KETOROLAC TROMETHAMINE 30 MG/1 ML VIAL IVPUSH ONE (09:41)
[2021-10-14 09:44] VITALS: BP 130/92; PULSE 80; TEMP 97.9; BMI 29.7
[2021-10-14] MEDS ORDERED: ACETAMINOPHEN INJECTION 100 ML IVPB ONE (09:47)
[2021-10-14] MEDS ORDERED: KETOROLAC TROMETHAMINE 30 MG/1 ML VIAL ONE (09:48)
[2021-10-14 10:08] LABS: HCG,QUALITATIVE URINE Negative
[2021-10-14 10:23] LABS: HEMATOCRIT 35.3 % (32.4-45.2); MCH 27.6 pg (25.7-33.7); MCHC 34.1 g/dl (32.0-36.0); MEAN PLT VOLUME 9.8 fl (7.5-11.1); PLATELET COUNT 214.3 10^3/uL (134-434); RBC 4.36 10^6/uL (3.60-5.2); RDW 18.3 % (11.6-15.6); WHITE BLOOD COUNT 5.7 10^3/uL (4.0-10.8)
[2021-10-14 10:38] LABS: CALCIUM OXALATE CRYSTALS MODERATE /hpf (NONE SEEN); EPITHELIAL CELLS FEW /hpf; URINE MUCUS 1+
[2021-10-14 10:42] LABS: ALBUMIN 3.7 g/dl (3.4-5.0); BILIRUBIN,TOTAL 0.3 mg/dl (0.2-1); CALCIUM 9.2 mg/dl (8.5-10); CREATININE 0.8 mg/dl (0.55-1.3); TOT PROT 6.3 g/dl (6.4-8.2)
[2021-10-14] MEDS ORDERED: morphine CARPU-JECT 4 MG/1 ML DISP.SYRIN IVPUSH ONE (11:13)
[2021-10-14] MEDS ORDERED: morphine SULFATE 4 MG/ML VIAL ONE (11:15)
== END 2021-10-14 12:27 | disposition home or self-care (01) ==
LOC: FER 09:22
PROC: 3E033GC Introduction of Other Therapeutic Substance into Peripheral Vein, Percutaneous Approach (ICD-10-PCS; principal; 2021-10-14)
DX: R10.9 Unspecified abdominal pain (principal); D25.9 Leiomyoma of uterus, unspecified
CPT/HCPCS: 36415; 74176-TC; 80053; 81003; 81015; 84703; 85027; 87086; 99285-25

== ENCOUNTER 2022-02-27 20:03 | Emergency (ER) | payer BC, OTHER ==
[2022-02-27 20:18] VITALS: RESP 18; BMI 29.0
[2022-02-27] MEDS ORDERED: morphine CARPU-JECT 4 MG/1 ML DISP.SYRIN IVPUSH ONE ×2 (20:36→23:31)
[2022-02-27] MEDS ORDERED: SODIUM CHLORIDE 1,000 ML IV ONE (20:36)
[2022-02-27 21:27] LABS: HEMATOCRIT 40.8 % (32.4-45.2); HEMOGLOBIN 13.4 G/dL (10.7-15.3); MCH 28.7 pg (25.7-33.7); MCHC 32.9 g/dl (32.0-36.0); MEAN CELL VOLUME 87.4 fl (80-96); MEAN PLT VOLUME 9.4 fl (7.5-11.1); PLATELET COUNT 248.5 10^3/uL (134-434); RBC 4.67 10^6/uL (3.60-5.2); RDW 14.3 % (11.6-15.6)
[2022-02-27] MEDS ORDERED: morphine SULFATE 4 MG/ML VIAL ONE ×2 (21:27→23:45)
[2022-02-27 21:32] LABS: EPITHELIAL CELLS FEW /hpf
[2022-02-27 21:44] LABS: ALBUMIN 4.1 g/dl (3.4-5.0); BILIRUBIN,TOTAL 0.8 mg/dl (0.2-1); CALCIUM 9.1 mg/dl (8.5-10); CREATININE 0.8 mg/dl (0.55-1.3); TOT PROT 6.7 g/dl (6.4-8.2)
[2022-02-28 01:43] VITALS: BP 104/68; PULSE 91; TEMP 99.3
== END 2022-02-28 01:49 | disposition home or self-care (01) ==
LOC: FER 20:03
PROC: 3E033GC Introduction of Other Therapeutic Substance into Peripheral Vein, Percutaneous Approach (ICD-10-PCS; principal; 2022-02-27)
DX: K57.92 Diverticulitis of intestine, part unspecified, without perforation or abscess without bleeding (principal)
CPT/HCPCS: 0241U-QW; 36415; 74019-TC-FY; 74177-TC; 80053; 81003; 81015; 81025; 83605; 85027; 99285-25; Q9967

== ENCOUNTER 2022-04-26 13:38 | Inpatient (IN) | payer OTHER ==
[2022-04-26] MEDS ORDERED: ACETAMINOPHEN 1000 MG/100 ML BAG IVPB ONE (15:23)
[2022-04-26] MEDS ORDERED: ONDANSETRON 4 MG/2 ML VIAL IVPUSH ONE (15:36)
[2022-04-26 15:48] LABS: BASO % 0.7 % (0-2.0); EOS % 5.1 % (0-4.5); HEMATOCRIT 41.1 % (32.4-45.2); HEMOGLOBIN 13.3 GM/dL (10.7-15.3); LYMPH % 25.7 % (8-40); MCH 27.2 pg (25.7-33.7); MCHC 32.4 g/dl (32.0-36.0); MEAN PLT VOLUME 9.1 fl (7.5-11.1); MONO % 6.6 % (3.8-10.2); NEUT % 61.9 % (42.8-82.8); PLATELET COUNT 236 10^3/uL (134-434); RBC 4.89 M/mm3 (3.60-5.2); RDW 15.2 % (11.6-15.6); WHITE BLOOD COUNT 4.8 K/mm3 (4.0-10.0)
[2022-04-26] MEDS ORDERED: ACETAMINOPHEN INJECTION 100 ML IVPB ONE (15:53)
[2022-04-26] MEDS ORDERED: ONDANSETRON 4 MG/2 ML VIAL ONE (15:53)
[2022-04-26 15:55] LABS: INR 1.03 (0.83-1.09); PROTHROMBIN TIME (PATIENT) 11.9 SEC (9.7-13.0)
[2022-04-26 15:58] LABS: ACTIVATED PTT 34.9 SECONDS (25.2-36.5)
[2022-04-26 16:19] LABS: BLOOD UREA NITROGEN 10.4 mg/dL (7-18); MAGNESIUM 2.2 mg/dL (1.8-2.4)
[2022-04-26 16:21] LABS: CALCIUM 9.5 mg/dL (8.5-10.1)
[2022-04-26 16:22] LABS: CREATININE 0.7 mg/dL (0.55-1.3)
[2022-04-26 16:23] LABS: BILIRUBIN,TOTAL 0.6 mg/dL (0.2-1)
[2022-04-26 19:30] LABS: URINE APPEARANCE CLOUDY; URINE BILIRUBIN NEGATIVE (NEGATIVE); URINE COLOR YELLOW; URINE GLUCOSE (UA) NEGATIVE (NEGATIVE); URINE KETONE 1+ (NEGATIVE); URINE LEUK ESTERASE NEGATIVE (NEGATIVE); URINE NITRITE NEGATIVE (NEGATIVE); URINE PROTEIN TRACE (NEGATIVE)
[2022-04-26 19:33] LABS: HCG,QUALITATIVE URINE Negative
[2022-04-26] MEDS ORDERED: FAMOTIDINE 20 MG/50 ML IVPB 20 MG/50 ML MG IVPB ONE ×2 (21:35→21:42)
[2022-04-26] MEDS ORDERED: ACETAMINOPHEN 1000 MG/100 ML BAG IVPB PRN (23:48)
[2022-04-27] MEDS: DEXTROSE 5%-0.45% SALINE 1,000 ML IV SCH ×3 (01:40→23:20)
[2022-04-27 07:32] LABS: BASO % 0.9 % (0-2.0); EOS % 6.8 % (0-4.5); HEMATOCRIT 37.3 % (32.4-45.2); HEMOGLOBIN 12.4 GM/dL (10.7-15.3); LYMPH % 37.1 % (8-40); MCH 27.9 pg (25.7-33.7); MCHC 33.2 g/dl (32.0-36.0); MEAN CELL VOLUME 83.8 fl (80-96); MEAN PLT VOLUME 9.9 fl (7.5-11.1); MONO % 9.1 % (3.8-10.2); NEUT % 46.1 % (42.8-82.8); PLATELET COUNT 198 10^3/uL (134-434); RBC 4.45 M/mm3 (3.60-5.2); RDW 14.9 % (11.6-15.6); WHITE BLOOD COUNT 4.1 K/mm3 (4.0-10.0)
[2022-04-27 07:55] LABS: CHLORIDE 105 mmol/L (98-107); SODIUM 141 mmol/L (136-145)
[2022-04-27 08:08] LABS: ANION GAP 8 MMOL/L (8-16); BLOOD UREA NITROGEN 11.3 mg/dL (7-18); CO2 27 mmol/L (21-32); GLUCOSE,RANDOM 80 mg/dL (74-106)
[2022-04-27 08:09] LABS: ALBUMIN 3.5 g/dl (3.4-5.0)
[2022-04-27 08:11] LABS: CREATININE 0.8 mg/dL (0.55-1.3); SGPT/ALT 22 U/L (13-61)
[2022-04-27 08:12] LABS: BILIRUBIN,TOTAL 0.6 mg/dL (0.2-1); SGOT/AST 16 U/L (15-37)
[2022-04-27 08:13] LABS: ALK PHOS 42 U/L (45-117)
[2022-04-27] MEDS: PANTOPRAZOLE SODIUM 40 MG VIAL IVPUSH SCH ×2 (10:34→22:46)
[2022-04-27] MEDS: FAMOTIDINE 20 MG/50 ML IVPB 20 MG/50 ML MG IVPB SCH ×2 (10:34→22:46)
[2022-04-27 12:49] VITALS: BMI 28.7
[2022-04-27] MEDS: MEROPENEM 1 GM in DEXTROSE 5%-WATER 100 ML IVPB SCH ×2 (13:30→18:13)
[2022-04-27] MEDS ORDERED: DULoxetine HCL 30 MG CAPSULE.DR PO ONE (13:56)
[2022-04-27] MEDS ORDERED: DULoxetine HCL 60 MG CAPSULE.DR PO SCH (14:00)
[2022-04-27] MEDS ORDERED: DULoxetine HCL 30 MG CAPSULE.DR PO SCH (14:03)
[2022-04-27 14:04] LABS: LDH 136 U/L (84-246)
[2022-04-27] MEDS: buPROPion HCL 75 MG TABLET PO SCH (22:45)
[2022-04-28] MEDS: MEROPENEM 1 GM in DEXTROSE 5%-WATER 100 ML IVPB SCH (02:09)
[2022-04-28] MEDS: DEXTROSE 5%-0.45% SALINE 1,000 ML IV SCH (02:31)
[2022-04-28] MEDS ORDERED: POLYETHYLENE GLYCOL (HEALTHYLAX) 3350 17 GM PACKET PO SCH (10:00)
[2022-04-28] MEDS: buPROPion HCL 75 MG TABLET PO SCH (10:59)
[2022-04-28 11:34] LABS: EOS % 5.3 % (0-4.5); HEMATOCRIT 36.3 % (32.4-45.2); HEMOGLOBIN 11.9 GM/dL (10.7-15.3); LYMPH % 11.1 % (8-40); MCH 28.8 pg (25.7-33.7); MCHC 32.8 g/dl (32.0-36.0); MEAN CELL VOLUME 87.8 fl (80-96); MEAN PLT VOLUME 7.8 fl (7.5-11.1); MONO % 13.2 % (3.8-10.2); NEUT % 69.4 % (42.8-82.8); PLATELET COUNT 266 10^3/uL (134-434); RBC 4.14 M/mm3 (3.60-5.2); RDW 16.6 % (11.6-15.6); WHITE BLOOD COUNT 7.8 K/mm3 (4.0-10.0)
[2022-04-28] MEDS: PANTOPRAZOLE SODIUM 40 MG VIAL IVPUSH SCH (11:44)
[2022-04-28] MEDS: FAMOTIDINE 20 MG/50 ML IVPB 20 MG/50 ML MG IVPB SCH (11:44)
[2022-04-28 12:09] LABS: BLOOD UREA NITROGEN 5.2 mg/dL (7-18)
[2022-04-28 12:12] LABS: CREATININE 0.7 mg/dL (0.55-1.3)
[2022-04-28] MEDS ORDERED: LORazepam 1 MG TABLET PO SCH (13:45)
[2022-04-28 18:13] VITALS: BP 143/90; PULSE 87; RESP 18; TEMP 98.3
[2022-04-28] MEDS ORDERED: PANTOPRAZOLE 40 MG TABLET PO SCH (22:00)
== END 2022-04-28 18:29 | disposition home or self-care (01) | DRG 391 ==
LOC: JER 13:38 → JERBED 21:36 → J6S 04-27 07:20
PROVIDERS: ADMIT Internal Medicine; ATTEND Internal Medicine
PROC: 0DB58ZX Excision of Esophagus, Via Natural or Artificial Opening Endoscopic, Diagnostic (ICD-10-PCS; principal; 2022-04-28 12:15)
DX: K21.00 Gastro-esophageal reflux disease with esophagitis, without bleeding (principal); U07.1 COVID-19; K92.1 Melena; K92.2 Gastrointestinal hemorrhage, unspecified; F32.A Depression, unspecified; D72.10 Eosinophilia, unspecified; M79.7 Fibromyalgia; M06.9 Rheumatoid arthritis, unspecified; E28.2 Polycystic ovarian syndrome; K44.9 Diaphragmatic hernia without obstruction or gangrene; J45.909 Unspecified asthma, uncomplicated; Z98.84 Bariatric surgery status
CPT/HCPCS: 0241U-QW; 36415; 74177-TC; 80048; 80053; 81003; 82272; 82728; 83036; 83615; 83735; 84439; 84443; 84703; 85025; 85610; 85730; 86140; 86850; 86900; 86901; 87040; 87086; 88305-TC; 93005; 93010; 99285-25; Q9967

== ENCOUNTER 2022-05-01 09:22 | Emergency (ER) | payer OTHER ==
[2022-05-01] MEDS ORDERED: ALBUTEROL SO4 2.5/IPRATROPIUM 0.5 INH SOL 3 ML VIAL.NEB. NEB ONE ×4 (09:40→10:05)
[2022-05-01] MEDS ORDERED: SODIUM CHLORIDE 0.9% 1000 ML INFUS.BAG IV ONE (09:43)
[2022-05-01 09:46] VITALS: TEMP 97.7; BMI 26.6
[2022-05-01 10:50] LABS: HEMATOCRIT 39.3 % (32.4-45.2); HEMOGLOBIN 13.5 G/dL (10.7-15.3); MCH 28.7 pg (25.7-33.7); MCHC 34.5 g/dl (32.0-36.0); MEAN CELL VOLUME 83.2 fl (80-96); MEAN PLT VOLUME 9.7 fl (7.5-11.1); PLATELET COUNT 217.2 10^3/uL (134-434); RBC 4.72 10^6/uL (3.60-5.2); RDW 16.4 % (11.6-15.6); WHITE BLOOD COUNT 5.7 10^3/uL (4.0-10.8)
[2022-05-01 10:57] LABS: ALBUMIN 4.1 g/dl (3.4-5.0); ALK PHOS 55 U/L (45-117); BILIRUBIN,TOTAL 1.3 mg/dl (0.2-1); CALCIUM 9.5 mg/dl (8.5-10); CHLORIDE 100 mmol/L (98-107); CO2 22 mmol/L (21-32); CREATININE 0.8 mg/dl (0.55-1.3); GLUCOSE,RANDOM 78 mg/dl (74-106); MAGNESIUM 1.9 mg/dL (1.8-2.4); SGOT/AST 19 U/L (15-37); SGPT/ALT 16 U/L (13-61)
[2022-05-01 11:05] LABS: ANION GAP 13 MMOL/L (8-16); SODIUM 135 mmol/L (136-145)
[2022-05-01] MEDS ORDERED: KETOROLAC TROMETHAMINE 15 MG/ML VIAL IVPUSH ONE (11:41)
[2022-05-01 12:00] LABS: PLATELET ESTIMATE ADEQUATE
[2022-05-01 12:38] LABS: HCG,QUALITATIVE URINE Negative
[2022-05-01] MEDS ORDERED: KETOROLAC TROMETHAMINE 15 MG/ML VIAL ONE (12:39)
[2022-05-01 12:42] LABS: LIPASE 111 U/L (73-393)
[2022-05-01 13:36] VITALS: BP 133/70; PULSE 70; RESP 15
== END 2022-05-01 13:20 | disposition home or self-care (01) ==
LOC: FER 09:22
PROC: 3E033GC Introduction of Other Therapeutic Substance into Peripheral Vein, Percutaneous Approach (ICD-10-PCS; principal; 2022-05-01)
PROC: 3E0F7GC Introduction of Other Therapeutic Substance into Respiratory Tract, Via Natural or Artificial Opening (ICD-10-PCS; 2022-05-01)
DX: I80.8 Phlebitis and thrombophlebitis of other sites (principal); R07.9 Chest pain, unspecified; R19.7 Diarrhea, unspecified
CPT/HCPCS: 0241U-QW; 36415; 71045-TC-FY; 80053; 81003; 81015; 83690; 83735; 84484; 84703; 85027; 93005; 93971; 99285-25

== ENCOUNTER 2022-06-13 04:49 | Day surgery (SDC) | payer OTHER ==
[2022-06-09 12:29] VITALS: BMI 26.6
[2022-06-13 10:16] VITALS: TEMP 97.1
[2022-06-13 10:55] VITALS: BP 110/80; PULSE 68; RESP 20
== END 2022-06-13 11:00 | disposition home or self-care (01) ==
LOC: JASU-ENDO 04:49
PROVIDERS: ATTEND Internal Medicine Gastroenterology
PROC: 0DBB8ZX Excision of Ileum, Via Natural or Artificial Opening Endoscopic, Diagnostic (ICD-10-PCS; 2022-06-13)
PROC: 0DBH8ZX Excision of Cecum, Via Natural or Artificial Opening Endoscopic, Diagnostic (ICD-10-PCS; principal; 2022-06-13 09:00)
DX: Z12.11 Encounter for screening for malignant neoplasm of colon (principal); K57.30 Diverticulosis of large intestine without perforation or abscess without bleeding; K64.8 Other hemorrhoids; Z86.010 Personal history of colon polyps; Z80.0 Family history of malignant neoplasm of digestive organs
CPT/HCPCS: 81025; 87045; 87046; 87209; 88305-TC

== ENCOUNTER 2022-09-25 14:36 | Day surgery (SDC) | payer OTHER ==
[2022-09-25] MEDS ORDERED: ONDANSETRON 4 MG/2 ML VIAL IVPUSH ONE (16:00)
[2022-09-25] MEDS ORDERED: MAG HYDROX/AL HYDROX/SIMETH 30 ML UNIT-DOSE CUP ONE (16:00)
[2022-09-25] MEDS ORDERED: ACETAMINOPHEN INJECTION 100 ML IVPB ONE (16:00)
[2022-09-25] MEDS ORDERED: FAMOTIDINE 20 MG/50 ML IVPB 20 MG/50 ML MG IVPB ONE ×2 (16:00)
[2022-09-25] MEDS ORDERED: ONDANSETRON 4 MG/2 ML VIAL ONE (16:00)
[2022-09-25] MEDS ORDERED: MAG HYDROX/AL HYDROX/SIMETH 30 ML UNIT-DOSE CUP PO ONE (16:00)
[2022-09-25] MEDS ORDERED: ACETAMINOPHEN 1000 MG/100 ML BAG IVPB ONE (16:01)
[2022-09-25 16:40] LABS: HEMOGLOBIN 12.4 GM/dL (10.7-15.3); MCH 28.2 pg (25.7-33.7); MCHC 32.7 g/dl (32.0-36.0); MEAN CELL VOLUME 86.3 fl (80-96); MEAN PLT VOLUME 9.3 fl (7.5-11.1); PLATELET COUNT 237 10^3/uL (134-434); RDW 14.2 % (11.6-15.6); WHITE BLOOD COUNT 11.4 K/mm3 (4.0-10.0)
[2022-09-25 16:42] LABS: EPI CELLS 25 /uL (0-25.1); HYALINE CASTS 1 /uL (0-3.1); PH,URINE 5.5 (5.0-8.0); URINE APPEARANCE CLEAR; URINE BACTERIA 528 /uL (0-1359); URINE BILIRUBIN NEGATIVE (NEGATIVE); URINE COLOR YELLOW; URINE GLUCOSE (UA) NEGATIVE (NEGATIVE); URINE KETONE 2+ (NEGATIVE); URINE LEUK ESTERASE NEGATIVE (NEGATIVE); URINE NITRITE NEGATIVE (NEGATIVE); URINE PROTEIN NEGATIVE (NEGATIVE); URINE RBC 30 /uL (0-23.9); URINE UROBILINOGEN 0.2 mg/dL (0.2-1.0); URINE WBC 8 /uL (0-25.8)
[2022-09-25] MEDS ORDERED: morphine CARPU-JECT 2 MG/1 ML DISP.SYRIN IVPUSH ONE (16:58)
[2022-09-25 16:59] LABS: POTASSIUM 3.9 mmol/L (3.5-5.1)
[2022-09-25 17:01] LABS: BLOOD UREA NITROGEN 9.7 mg/dL (7-18); CALCIUM 8.9 mg/dL (8.5-10.1)
[2022-09-25 17:04] LABS: CREATININE 0.7 mg/dL (0.55-1.3)
[2022-09-25 17:06] LABS: BILIRUBIN,TOTAL 0.7 mg/dL (0.2-1); TOT PROT 7.1 g/dl (6.4-8.2)
[2022-09-25] MEDS ORDERED: HYDROmorphone HCl 2 MG/ML VIAL IVPUSH ONE (19:11)
[2022-09-25] MEDS ORDERED: CEFEPIME HCL/D5W 2 GM/50 ML BAG IVPB ONE (19:26)
[2022-09-25] MEDS ORDERED: DEXTROSE 5%-0.45% SALINE 1,000 ML IV SCH (19:30)
[2022-09-25] MEDS ORDERED: HYDROmorphone HCl 2 MG/ML VIAL ONE (20:28)
[2022-09-25] MEDS ORDERED: CEFEPIME 2 GM/100 ML BAG IVPB ONE (20:29)
[2022-09-25 21:32] LABS: INR 1.01 (0.83-1.09); PROTHROMBIN TIME (PATIENT) 11.7 SEC (9.7-13.0)
[2022-09-25 21:34] LABS: ACTIVATED PTT 34.8 SECONDS (25.2-36.5)
[2022-09-25] MEDS ORDERED: ACETAMINOPHEN 1000 MG/100 ML BAG IVPB PRN (22:08)
[2022-09-25] MEDS ORDERED: ONDANSETRON 4 MG/2 ML VIAL IVPUSH PRN (22:09)
[2022-09-26] MEDS: DEXTROSE 5%-0.45% SALINE 1,000 ML IV SCH ×3 (00:30→11:10)
[2022-09-26 01:13] VITALS: BMI 26.1
[2022-09-26] MEDS ORDERED: ROCURONIUM BROMIDE 50 MG/5 ML SYRINGE ONE (07:37)
[2022-09-26] MEDS ORDERED: MIDAZOLAM HCL 2 MG/2 ML SINGLE DOSE VIAL ONE (07:37)
[2022-09-26] MEDS ORDERED: LIDOCAINE HCL/PF 2% SDV 5ML VIAL ONE (07:37)
[2022-09-26] MEDS ORDERED: PROPOFOL 20 ML ONE (07:37)
[2022-09-26] MEDS ORDERED: ONDANSETRON 4 MG/2 ML VIAL ONE (07:50)
[2022-09-26] MEDS ORDERED: DEXAMETHASONE SOD PHOSPHATE 4 MG/1 ML VIAL ONE (07:50)
[2022-09-26] MEDS ORDERED: GLYCOPYRROLATE 0.2 MG/1 ML VIAL ONE (08:10)
[2022-09-26] MEDS ORDERED: NEOSTIGMINE METHYLSULFATE 0.5 MG/1 ML - 10 ML MDV ONE (08:10)
[2022-09-26] MEDS ORDERED: KETOROLAC TROMETHAMINE 30 MG/1 ML VIAL ONE (08:17)
[2022-09-26] MEDS ORDERED: BUPIVACAINE HCL/PF 0.5% (5 MG/ML) 30 ML VIAL IJ ONE ×2 (08:37)
[2022-09-26] MEDS ORDERED: LACTATED RINGERS SOLUTION 1,000 ML IV SCH ×2 (09:00→10:43)
[2022-09-26] MEDS ORDERED: ACETAMINOPHEN 1000 MG/100 ML BAG IVPB PRN (10:43)
[2022-09-26] MEDS ORDERED: ONDANSETRON 4 MG/2 ML VIAL IVPUSH PRN (10:43)
[2022-09-26] MEDS: CEFTRIAXONE 1 GM in DEXTROSE 5%-WATER - 50 ML IVPB SCH (16:33)
[2022-09-27] MEDS: DEXTROSE 5%-0.45% SALINE 1,000 ML IV SCH ×2 (00:27→12:24)
[2022-09-27 08:11] LABS: HEMATOCRIT 32.3 % (32.4-45.2); HEMOGLOBIN 10.7 GM/dL (10.7-15.3); MCH 29.3 pg (25.7-33.7); MEAN CELL VOLUME 88.6 fl (80-96); PLATELET COUNT 184 10^3/uL (134-434); RBC 3.65 M/mm3 (3.60-5.2); RDW 14.7 % (11.6-15.6); WHITE BLOOD COUNT 7.2 K/mm3 (4.0-10.0)
[2022-09-27 08:21] LABS: POTASSIUM 3.6 mmol/L (3.5-5.1)
[2022-09-27 08:26] LABS: BLOOD UREA NITROGEN 6.5 mg/dL (7-18); CALCIUM 8.3 mg/dL (8.5-10.1)
[2022-09-27 08:29] LABS: CREATININE 0.6 mg/dL (0.55-1.3)
[2022-09-27 08:31] LABS: BILIRUBIN,TOTAL 0.6 mg/dL (0.2-1); TOT PROT 5.6 g/dl (6.4-8.2)
[2022-09-27 08:36] LABS: ALBUMIN 2.9 g/dl (3.4-5.0)
[2022-09-27] MEDS: CEFTRIAXONE 1 GM in DEXTROSE 5%-WATER - 50 ML IVPB SCH (09:55)
[2022-09-27] MEDS ORDERED: KETOROLAC TROMETHAMINE 30 MG/1 ML VIAL IVPUSH PRN (11:28)
[2022-09-27] MEDS ORDERED: IBUPROFEN 600 MG TABLET (FP) PO PRN (11:29)
[2022-09-27] MEDS ORDERED: IBUPROFEN *ORAL SUSPENSION* 100 MG/5 ML PO PRN (11:31)
[2022-09-27 14:40] VITALS: RESP 20
[2022-09-27] MEDS: oxyCODONE HCL 5 MG TABLET PO PRN (15:33)
[2022-09-27] MEDS: ACETAMINOPHEN 500 MG TABLET (FP) PO SCH ×3 (15:34→22:15)
[2022-09-28] MEDS: ACETAMINOPHEN 500 MG TABLET (FP) PO SCH (07:51)
[2022-09-28] MEDS: oxyCODONE HCL 5 MG TABLET PO PRN (10:45)
[2022-09-28 12:10] VITALS: BP 145/94; PULSE 71; TEMP 97.8
== END 2022-09-28 12:30 | disposition home or self-care (01) ==
LOC: JER 14:36 → JERBED 19:19 → UNDOADMOB 19:19 → J7W 23:26 → JERBED 23:26 → JASUSAT 09-26 11:07 → J7W 09-26 11:16 → JASUSAT 09-28 12:30
PROVIDERS: ATTEND Family Medicine
PROC: 0DTJ4ZZ Resection of Appendix, Percutaneous Endoscopic Approach (ICD-10-PCS; principal; 2022-09-26 07:30)
DX: K35.80 Unspecified acute appendicitis (principal)
CPT/HCPCS: 36415; 74177-TC; 80053; 81003; 82962; 83690; 84703; 85027; 85610; 85730; 86850; 86900; 86901; 87086; 87635; 88304-TC; 94010; 94760; 99285-25; Q9967

== ENCOUNTER 2024-01-01 16:58 | Emergency (ER) | payer OTHER ==
[2024-01-01 17:11] VITALS: BP 126/83; PULSE 88; RESP 16; TEMP 98.1; BMI 31.3
[2024-01-01] MEDS ORDERED: SULFAMETHOXAZOLE/TRIMETHOPRIM 800MG/160MG D.S. TABLET ONE (17:24)
[2024-01-01] MEDS: SULFAMETHOXAZOLE/TRIMETHOPRIM 800MG/160MG D.S. TABLET PO ONE (17:25)
== END 2024-01-01 17:30 | disposition home or self-care (01) ==
LOC: FER 16:58
DX: S90.511A Abrasion, right ankle, initial encounter (principal); L08.9 Local infection of the skin and subcutaneous tissue, unspecified; W57.XXXA Bitten or stung by nonvenomous insect and other nonvenomous arthropods, initial encounter
CPT/HCPCS: 99283-25